=== PATIENT | female | born 1965 | race Two or more races ===

== ENCOUNTER 2021-04-12 17:00 | Emergency (ER) | payer OTHER ==
[2021-04-12] VITALS (12 sets, daily range): BP systolic 100–122; BP diastolic 49–65
[~2021-04-12] VITALS: Ht 154.9 cm; Wt 71.3 kg
[2021-04-12 18:03] LABS: MEAN PLATELET VOLUME 8.4 fL (7.4-10.4); PLATELET COUNT 445 x10^3/uL (130-400); RED BLOOD COUNT 3.92 x10^6/uL (3.82-5.3); RED CELL DISTRIBUTION WIDTH 20.6 % (9.6-15.2)
[2021-04-12 18:12] LABS: ALBUMIN 3.9 g/dL (3.4-5.0); ANION GAP 6 mmol/L (5-15); CALCIUM 8.3 mg/dL (8.5-10.1); CHLORIDE 111 mmol/L (98-107)
[2021-04-12 18:17] LABS: ALANINE AMINOTRANSFERASE 18 U/L (12-78); ALKALINE PHOSPHATASE 110 U/L (45-117); BILIRUBIN,TOTAL 0.9 mg/dL (0.2-1.0); CREATININE 0.49 mg/dL (0.55-1.02)
[2021-04-12 18:19] LABS: MD YES; MEAN CORPUSCULAR HGB CONC 27.9 g/dL (32.4-35.8)
--- NOTE | 2021-04-12 18:35 | NUR ---
pt brought to room from lobby. 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 SO at bedside
--- NOTE | 2021-04-12 18:52 | NUR ---
report to Javier LEIJA
--- NOTE | 2021-04-12 18:53 | NUR ---
received report from HELADIO Lucero chart up for recheck.
[2021-04-12 18:56] LABS: EOS#(MANUAL) 0.06 x10^3/uL (0.0-0.4); EOS% (MANUAL) 1 % (1-7); LYMPHS% (MANUAL) 35 % (22-44); MONOS#(MANUAL) 0.36 x10^3/uL (0.3-2.7); MONOS% (MANUAL) 6 % (2-9); SEG#(MANUAL) 3.48 x10^3/uL (1.8-6.8); SEGS% (MANUAL) 58 % (42-75)
[2021-04-12 18:57] LABS: ANISOCYTOSIS 2+; HYPOCHROMIA 2+; MICROCYTOSIS 2+
[2021-04-12 18:58] LABS: OVALOCYTES 1+; TEAR DROPS 1+
[2021-04-12 18:59] LABS: <PLATELET ESTIMATE> INCREASED; POLYCHROMASIA 1+
[2021-04-12 19:00] LABS: <PLT MORPHOLOGY> NORMAL PLT MORPH
--- NOTE | 2021-04-12 20:15 | NUR ---
ERP at bedside for re-evaluation.
--- NOTE | 2021-04-12 20:51 | NUR ---
blood transfusion started.
[2021-04-12] MEDS ORDERED: FERROUS SULFATE 325 MG TABLET PO ONE (21:00)
--- NOTE | 2021-04-12 21:15 | NUR ---
no reaction to transfusion. will continue blood transfusion.
--- NOTE | 2021-04-12 22:13 | NUR ---
1st unit. no reaction.
--- NOTE | 2021-04-12 22:27 | NUR ---
2nd unit transfusing.
[2021-04-12] MEDS ORDERED: DIPHENHYDRAMINE 50 MG/ML, 1ML ONE (23:15)
--- NOTE | 2021-04-12 23:25 | NUR ---
blood transfusion held per ERP. patient developed rashes on both arms. denies SOB. denies pain.
[2021-04-12] MEDS ORDERED: DIPHENHYDRAMINE 50 MG/ML, 1ML IVPush ONE (23:30)
--- NOTE | 2021-04-12 23:39 | NUR ---
some of the rashes fading away. blood restarted per ERP.
[2021-04-13] VITALS: BP 113/51
[2021-04-13 00:15] VITALS: BP 111/52
[2021-04-13] MEDS ORDERED: DEXAMETHASONE 4 MG/ML, 1ML IVPush ONE (01:00)
[2021-04-13] MEDS ORDERED: DEXAMETHASONE 4 MG/ML, 5ML ONE (01:01)
--- NOTE | 2021-04-13 01:29 | NUR ---
patient feeling better. rashes went away. patient discharged with prescription and instruction. verbalized understanding.
[2021-04-13 01:33] VITALS: BP 120/60
== END 2021-04-13 01:40 | disposition home or self-care (01) ==
LOC: ED 20:20
DX: D50.0 Iron deficiency anemia secondary to blood loss (chronic) (principal); R00.0 Tachycardia, unspecified
CPT/HCPCS: 36415; 36430; 80053; 82728; 83540; 83550; 85025; 86850; 86900; 86923; 96374; 96375; 99285; J1100; J1200; P9016